=== PATIENT | female | born 1965 | race Caucasian/White ===

== ENCOUNTER 2020-10-22 11:12 | Outpatient (REF) | payer MEDICARE, MEDICAID, SELFPAY | END 2020-10-22 11:13 | disposition home or self-care (01) | LOC: HO.LAB 11:12 | PROVIDERS: Visit Provider Internal Medicine | DX: Z20.828 Contact with and (suspected) exposure to other viral communicable diseases (principal) | CPT/HCPCS: C9803; U0003 ==

== ENCOUNTER 2023-05-15 10:54 | Emergency (ER) | payer MEDICARE, MEDICAID, SELFPAY ==
--- NOTE | ~2023-05-15 | US_ITS ---
EXAMINATION: US VENOUS ULTRASOUND WITH DOPPLER LOWER EXTREMITY, LEFT CLINICAL INFORMATION: Pain and swelling COMPARISON: None available. TECHNIQUE: Ultrasound of the deep veins is performed from the hip to the calf with compression sonography and color and pulse Doppler assessment. Spectral analysis with color-flow imaging is performed. FINDINGS: Normal waveforms and color Doppler interrogation of the left lower extremity veins. Compressibility not assessed as patient declined compressions in the groin/thigh. The visualized common femoral vein, superficial femoral vein, profunda femoral vein, popliteal vein, and the trifurcation region shows no evidence of deep venous thrombosis. There is no significant popliteal fossa cyst. US/US venous duplex LE LT IMPRESSION: No DVT demonstrated in the left lower extremity.
--- NOTE | ~2023-05-15 | XR_ITS ---
EXAMINATION: XR TIBIA AND FIBULA, LEFT CLINICAL INFORMATION: Pain, swelling COMPARISON: None available. TECHNIQUE: AP and lateral views of the left tibia and fibula were obtained. FINDINGS: No acute bony finding in the tib-fib. No fracture. No evidence for bony erosion. XR/XR tibia fibula LT 2V IMPRESSION: No acute finding left tib-fib
[2023-05-15 10:59] VITALS: BP 130/80; PULSE 91; RESP 20; TEMP 36.6; O2SAT 97; BMI 40.4
--- NOTE | 2023-05-15 11:27 | ED.GENADULT ---
HPI - General Adult General Chief complaint: Extremity Injury, Lower Stated complaint: L Leg Hematoma Time Seen by Provider: 05/15/23 11:26 Source: patient and other (program staff Sharla) Mode of arrival: ambulatory Limitations: no limitations History of Present Illness HPI narrative: Patient is a 58 year old assigned female at with no reported medical history presenting to the emergency department today with left lower leg pain. Patient states that earlier this month she fell and is having left lower leg pain. Staff member at the bed side states that she would like the patient to have an US to rule out DVT. Patient denies any head strike, loss of consciousness, dizziness, lightheadedness, abdominal pain, nausea, vomiting, fever, chills, blurry vision, double vision, loss of vision, chest pain, difficulty breathing, shortness of breath, back pain, night sweats, pain with urination, increased urinary frequency, increased urinary urgency, blood in her urine or stool, syncope or a near syncopal episode, bowel incontinence, bladder incontinence, bowel retention, bladder retention, or any other complaints at this time. Onset (ago): week(s) Location: left and lower extremity Radiation: non-radiation Severity: mild Severity scale (1-10): 3 Quality: aching and dull Pain Consistency: constant Relieving factors: none Exacerbating factors: none Associated symptoms: denies other symptoms Treatments prior to arrival: none Related Data Allergies Allergy/AdvReac Type Severity Reaction Status Date / Time No Known Allergies Allergy Verified 05/15/23 11:06 Review of Systems Constitutional: Constitutional: Reports no additional constitutional complaints, Denies chills, Denies fever(s) and Denies night sweats Eyes: Eyes: Reports no additional eye complaints, Denies blurry vision, Denies change in vision, Denies diplopia, Denies eye discharge, Denies loss of vision and Denies eye pain ENT: Denies dizziness Cardiovascular: Cardiovascular: Reports no additional cardiovascular complaints, Denies chest pain, Denies lightheadedness, Denies Loss of Consciousness and Denies dyspnea Respiratory: Respiratory: Reports no additional respiratory complaints and Denies dyspnea Gastrointestinal: Gastrointestinal: Reports no additional gastrointestinal complaints, Denies abdominal pain, Denies melena, Denies hematochezia, Denies change in bowel habits and Denies change in stool character Genitourinary: Genitourinary: Denies hematuria, Denies urinary frequency, Denies dysuria, Denies urinary incontinence, Denies urinary hesitancy and Denies urinary urgency Musculoskeletal: Musculoskeletal: Reports no additional musculoskeletal complaints, Denies numbness and Denies tingling Comments: left lower leg pain Neurologic: Denies dizziness, Denies loss of vision, Denies numbness and Denies tingling Psychiatric: Psychiatric: Reports no additional psychiatric complaints Endocrine: Endocrine: Reports no additional endocrine complaints Hematologic/Lymphatic: Hematologic/Lymphatic: Reports no additional hematologic/lymphatic complaints Allergic/Immunologic: Allergic/Immunologic: Reports no additional allergic/immunologic complaints PMFSH Past Medical History Attestation statement: The following information was validated with the patient. (all information validated with program staff at bed side) Source: old records reviewed, nursing notes reviewed and other (patient's program staff member at bed side) Social History Social History Advance Directives: Yes Advance Directives Information Provided: Yes Advance Directives on File: No Physical Exam ED Vital Signs: Vital Signs - 24 hr 05/15/23 10:59 Temperature 98 F Pulse Rate 91 Respiratory Rate 20 Blood Pressure 130/80 Pulse Oximetry 97 Oxygen Delivery Method Room Air BMI result Body Mass Index 40.4 Const General: cooperative, no acute distress, alert and awake Nutritional Appearance: well nourished Orientation/consciousness: patient oriented x3 Limitations: no limitations HENMT Head: Yes normal to inspection and Yes atraumatic Ears: hearing grossly normal bilaterally and external ears normal General nose exam: Normal external nose present, no nasal discharge noted and no epistaxis Face and sinus: Yes normal facial exam, No abrasion and No laceration Mouth: Normal oral and palatal mucosa present, no drooling and no muffled voice Eyes General: appearance normal, both eyes and all related structures Periorbital: periorbital findings normal Eyelids: Yes eyelids normal Conjunctivae: conjunctivae normal Pupils: Equal, round and reactive pupils present EOM: EOMs intact bilaterally Neck Neck: Yes normal visual inspection, Yes full ROM and Yes no lymphadenopathy Chest Chest palpation & inspection: normal inspection of the chest Resp Effort & Inspection: normal respiratory effort and able to speak in complete sentences GI Inspection: Yes normal to inspection Neuro General: patient oriented x3 and moves all extremities Cranial nerves: Yes Equal, round and reactive pupils present Cognition (Neuro): normal cognition Motor exam (neuro): 5/5 motor strength present throughout Sensory Exam: Normal double simultaneous stimulation for sensation Coordination: [id number] test normal Extrem Other: small contusion to the left medial lower leg, no open areas General: Yes full ROM and Yes capillary refill normal Psych Appearance: grossly normal Mental Status: mental status grossly normal Affect: normal affect Attitude: cooperative Thought process: Normal thought process present Thought content: Normal thought content present Insight: Good insight present (Psych) Medical Decision Making Medical Decision Making MDM Narrative: Patient is a 58 year old assigned male at with no reported medical history presenting to the emergency department today with left lower leg pain. Patient's physical exam showed a small contusion to the left lower leg but was otherwise unremarkable. Patient's left lower leg x-ray and US showed no acute process. I explained my physical exam findings as well as all test results to the patient and the staff at the bed side. I answered all questions asked by the patient and the staff at the bedside. I stressed the importance of the patient taking her medication as prescribed. I stressed the importance of the patient following up with her primary care provider. I stressed the importance of the patient returning to the emergency department immediately if her symptoms were to worsen or if she were to develop any dizziness, shortness of breath, difficulty breathing, chest pain, blurry vision, loss of vision, nausea, vomiting, abdominal pain, fever, chills, back pain, or any other complaints. Patient and the staff at the bed side verbalized agreement and understanding with this treatment plan and discharge. Differential Diagnosis Differential Diagnoses: The differential diagnosis associated with the presentation includes Leg contusion Leg fracture - Ruled out on XR DVT - Ruled out on US Admission/Observation Consideration of admission/observation: Escalation of care including admission/observation considered Patient would have been admitted to the hospital had her work up had any findings where hospital admission was appropriate and her clinical presentation warranted hospital admission. Independent Interpretation I performed an independent interpretation of an: Plain X-Ray and Ultrasound Interpretation: My interpretation is in agreement with the radiologist's impression of these imaging studies. EXAMINATION:? US VENOUS ULTRASOUND WITH DOPPLER LOWER EXTREMITY, LEFT CLINICAL INFORMATION:? Pain and swelling COMPARISON:? None available. TECHNIQUE: Ultrasound of the deep veins is performed from the hip to the calf with compression sonography and color and pulse Doppler assessment. Spectral analysis with color-flow imaging is performed. FINDINGS: Normal waveforms and color Doppler interrogation of the left lower extremity veins. Compressibility not assessed as patient declined compressions in the groin/thigh. The visualized common femoral vein, superficial femoral vein, profunda femoral vein, popliteal vein, and the trifurcation region shows no evidence of deep venous thrombosis. ? There is no significant popliteal fossa cyst. US/US venous duplex LE LT IMPRESSION: No DVT demonstrated in the left lower extremity. Dictated By: Laxmi Irwin MD Signed By: Electronically signed by Laxmi Irwin MD 05/15/23 1305 EXAMINATION: XR TIBIA AND FIBULA, LEFT CLINICAL INFORMATION: Pain, swelling? COMPARISON: None available.? TECHNIQUE: AP and lateral views of the left tibia and fibula were obtained. FINDINGS: No acute bony finding in the tib-fib. No fracture. No evidence for bony erosion.? XR/XR tibia fibula LT 2V IMPRESSION: No acute finding left tib-fib Dictated By: Jorge Elise MD Signed By: Electronically signed by Jorge Elise MD 05/15/23 4235 Radiology Impression Discussion of test interpretation with radiology: I have reviewed the radiologist's reading. Independent Historian Clinical information obtained from an independent historian. History obtained from or confirmed by: Other (patient's program staff at the bed side provided additional history and confirmed the history provided by the patient.) Prescription Management I considered prescription management with: Pain Medication (patient opted to take OTC pain medication.) Discharge Plan Discharge Clinical Impression: Hematoma Patient Disposition: Home, Self-Care Instructions: Contusion in Adults (ED) Additional Instructions: Follow up with your primary care provider. Return to the emergency department immediately if your symptoms worsen or if you develop any dizziness, shortness of breath, difficulty breathing, chest pain, blurry vision, loss of vision, nausea, vomiting, abdominal pain, fever, chills, back pain, or any other complaints. Referrals: [facility] [place] [facility] [Provider Group] (Call to establish and follow up with a primary care provider. If you already have a primary care provider, please follow up with them.) [facility] [place] [facility] [Provider [facility]] (Call to establish and follow up with a primary care provider. If you already have a primary care provider, please follow up with them.) [facility] [place] [facility] [Provider Group] (Call to establish and follow up with a primary care provider. If you already have a primary care provider, please follow up with them.) Interventions: ED Discharge Assessment Last Done: 05/15/23 13:46 Discharge Date/Time: 05/15/23 13:47 Print Language: Wolof
== END 2023-05-15 13:47 | disposition home or self-care (01) ==
PROVIDERS: Emergency Provider Emergency Medicine Emergency Medical Services
DX: S80.12XA Contusion of left lower leg, initial encounter (principal); W19.XXXA Unspecified fall, initial encounter; M79.662 Pain in left lower leg; Y93.9 Activity, unspecified; Y92.9 Unspecified place or not applicable; Y99.9 Unspecified external cause status
CPT/HCPCS: 73590; 93971; 99282; 99284